=== PATIENT | female | born 1990 | race Caucasian/White ===

== ENCOUNTER 2016-06-30 21:25 | Emergency (ER) | payer OTHER ==
[2016-06-30] MEDS ORDERED: HYDROcodone-APAP 5 MG -325 MG TABLET PO ONE (21:44)
[2016-06-30] MEDS ORDERED: Ondansetron ODT Tab 4 MG TAB PO ONE (21:44)
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
[2016-06-30 22:09] VITALS: RESP 16; TEMP 97.6
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
[2016-06-30] MEDS ORDERED: HYDROcodone-APAP 5 MG -325 MG TABLET PO SCH (23:15)
== END 2016-06-30 23:23 | disposition home or self-care (01) ==
LOC: ER 21:25
DX: S01.81XA Laceration without foreign body of other part of head, initial encounter (principal); R51 Headache; M54.2 Cervicalgia; M25.512 Pain in left shoulder; V86.59XA Driver of other special all-terrain or other off-road motor vehicle injured in nontraffic accident, initial encounter
CPT/HCPCS: 70450; 72125; 73030; 99283

== ENCOUNTER 2016-09-11 20:32 | Emergency (ER) | payer OTHER ==
[2016-09-11 21:52] VITALS: RESP 16; TEMP 97
--- NOTE | 2016-09-12 03:30 | PDOC ---
Female Problem HPI - General Chief Complaint: Vag Complaint/Bleed, <20WK IUP Stated Complaint: POSSIBLE MISCARRIAGE Date Seen by Provider: 09/11/16 Time Seen by Provider: 20:45 Source: POSITIVE: Patient Exam Limitations: POSITIVE: No limitations Nurse's Notes Reviewed & Considered: Yes - History of Present Illness Initial Comments: The patient is a 26-year-old female. Patient states that she took a home test on 07 september and found it to be positive. She thinks her last menstrual period was around July 06. She states she has an appointment with her costing manager Friday. She states she began having some vaginal spotting this morning which became heavier this afternoon. Patient has been 3 times and has had 3 live births, including a set of twins, and she's had one miscarriage. She states she has had some lower pelvic cramping. No real pain. She states she's not passed any tissue. Body Location Affected: REPORTS: Abdomen, Genitalia Timing: REPORTS: Abrupt Duration: <24 hours Severity: Mild Quality: REPORTS: Cramping (Some lower abdominal cramping) Context: DENIES: Frequent Bathing, Poor Hygiene, Frequent [place], Known STD Exposure, Unknown STD Exposure, Possible STD Exposure, Multiple Partners, Known , Recent Vaginal Delivery, Recent Delivery, Recent Miscarriage, Recent Trauma, Recent Surgery, Other Location of Pain: REPORTS: Pelvic Cramping Vaginal Bleeding: REPORTS: Abnormal Bleeding, Spotting Last Known Menstrual Period: 07/06/16 : 4 Para: 3 Abortions (Spontaneous/Intentional): 1 : REPORTS: Positive Test at Home Sexual History: REPORTS: Active Urinary Symptoms: DENIES: Blood in Urine, Frequent Urination, Discomfort w/ Urination, Burning w/ Urination, Urinary Urgency, Painful Urination, Other Discharge: DENIES: Vaginal Discharge, Vag Fluid Leak- , Breast Discharge, Other Similar Symptoms Previously: Yes (with previous miscarriage) Recent Care Received: REPORTS: Denies Any Prior Injuries Related to Current Complaint?: No - Patient Home Medications Home Medications: Home Medications Albuterol Neb Soln 0.083% 2.5 mg IH Q4H PRN #25 ml 09/11/16 Vits W-Ca,Fe,FA(<1Mg) [] 1 tab PO DAILY 09/11/16 - Patient Allergies Allergies/Adverse Reactions: Allergies Allergy/AdvReac Type Severity Reaction Status Date / Time codeine Allergy Severe ANAPHYLAXIS Verified 09/11/16 20:45 &/OR SEIZURE Penicillins Allergy Severe ANAPHYLAXIS Verified 09/11/16 20:45 &/OR SEIZURES latex Allergy Intermediate Rash Verified 09/11/16 20:45 Past Medical History - heen HEENT History: Recurrent Ear Infections, Inner Ear Disorders, Other (please comment) Additional HEENT History: MULTIPLE BILAT EAR SURGERIES IN ADDITION TO TYMPANOPLASTY (L), AND R MASTOIDECTOMY WITH FULL BONE AND SKIN GRAFTING Cardiovascular History: Denies History Respiratory History: Denies History Gastrointestinal History: Other (please comment) Additional Gastrointestinal History: Pt reports hx of ulcers Genitourinary History: Denies History Endocrine History: Other (please comment) Additional Endocrine History: hypoglycemic Musculoskeletal History: Denies History Prosthesis or Implant: No Neurological History: Denies History Blood Disorders: Anemia Psychiatric History: Denies History History of Sexually Transmitted Diseases: No Female Reproductive History: Denies History Obstetrical History: Delivery Cancer History: Denies History In Past Year Been Physically Harmed or Verbally Threatened: No History of MDRO: No History of Other Communicable Diseases: No Tobacco Use: Former Smoker Alcohol Use: None Substance Use Type: None Previous Surgical History: Yes Type / Date of Surgery: EARS, T&A, C SECTION X 3 Anesthesia Reactions: No Significant Family History: No pertinent family hx Past Medical History Reviewed: Reviewed - No Changes ROS - Limitations ROS Limitations: No Limitations Constitution: REPORTS: Denies Symptoms Cardiovascular: REPORTS: Denies Cardiac Symptoms Respiratory: REPORTS: Denies Resp Symptoms Neurological: REPORTS: Denies Neuro Symptoms Gastrointestinal: REPORTS: Denies GI Symptoms Endocrine: REPORTS: Denies Symptoms Musculoskeletal: REPORTS: Denies MS Symptoms Genitourinary: REPORTS: Other (Positive home test; vaginal bleeding/ spotting) Eyes: REPORTS: Denies Symptoms ENT: REPORTS: Denies Symptoms Skin: REPORTS: Denies Skin Symptoms Lympathic: REPORTS: Denies Lympathic Symptoms Immunologic: POSITIVE: Denies Symptoms Psychiatric: POSITIVE: Denies Psych Symptoms Female Genitourinary Exam - General Appearance General Appearance: POSITIVE: Alert, Cooperative, No Acute Distress, No Evidence of Trauma - HEENT HEENT: POSITIVE: EOMI - Neck Neck: POSITIVE: Normal Inspection, No Apparent Injury - Respiratory Respiratory: POSITIVE: No Respiratory Distress, Breath Sounds Normal, Chest Non- Tender - Cardiovascular Cardiovascular: POSITIVE: Regular Rate and Rhythm, Heart Sounds Normal, Equal Pulses, Strong Pulses Peripheral Pulses: Radial (R): 2+, Radial (L): 2+ - Abdomen Abdomen: POSITIVE: Soft, Normal Bowel Sounds, Non-Tender, No Distention, No Organomegaly - Back Back: POSITIVE: Normal Inspection - Genital / Rectal Pelvic Exam: POSITIVE: Cervix (Nontender; os closed), Vagina (No lesions; small amount of blood in vaginal vault), Uterus (Nontender), Adnexa (Nontender), External Exam Normal, Bimanual Exam Normal, Vaginal Bleeding (Scant), Blood In Vaginal Vault (Small amount). NEGATIVE: Speculum Exam Normal (Normal except for small amount of blood in vaginal vault), Vaginal Discharge, Herpes-Like Ulcerations, Clots in vaginal Vault, Cervicitis, Tissue Present in Cervix, Tissue Present in Vagina, Cervical Motion Tender, Cervical Dilation, Adnexal Tenderness, Adnexal Mass, Enlarged Uterus, Tender Uterus, Perineal Hematoma, Enlrgd Consistent w/Dates, Mild, Moderate, Severe - Skin Skin: POSITIVE: Intact, Normal For Race, Warm, Dry, No Rash - Extremities Extremity: Non-Tender: (All Extremities), Normal ROM: (All Extremities), Normal Inspection: (All Extremities) - Neurological / Psychological Neurological: POSITIVE: 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 Adnexa are normal Lab Results Reviewed: Yes Lab Results:: Laboratory Results 09/11/16 Range/Units 21:28 HCG, Quant 84028 mIU/ML Blood Type A POSITIVE - Patient's Progress Pain Medication Addressed: POSITIVE: Not Applicable School/Work Release Addressed: POSITIVE: Not Applicable Re-Examine Time: 23:50 Re-Examine Comment: Asymptomatic on discharge. Ultrasound and laboratory results discussed with patient. Patient's blood type is A positive. Status: POSITIVE: Unchanged, Re-Examined Rhogam Given: No (blood type is A positive) - Consult Counseled: POSITIVE: Patient, RE: Lab Results, RE: Radiology Results, RE: DX, RE : Need for F/U Patient Care Time - Estimated PCT Patient Care Time (In Minutes): 60 Vital Signs - Recent Vital Signs Vital Signs: Vital Signs (Last 8 hours) Temp Pulse Resp BP Pulse Ox 09/11/16 20:36 97.0 F 63 16 117/66 97 - VS Reviewed Vital Signs Reviewed: Yes Discharge Clinical Impression: Intrauterine , Threatened Discharge Disposition: Discharged to Home Condition: Stable Prescriptions / Orders: Albuterol Neb Soln 0.083% 2.5 mg IH Q4H PRN #25 ml PRN Reason: Wheezing Patient Instructions Given at Discharge: Threatened Miscarriage (ED), (ED) Additional Instructions: Your ultrasound shows that you have a twin . Everything looks normal on the ultrasound. By definition, since you are having some vaginal spotting in the first third of , you have what is known as a threatened miscarriage. This means that you are at somewhat more increased risk of miscarrying then if you had no vaginal bleeding. Please follow-up with your costing manager in about 2 days so that he your she can repeat the quantitative hCG test, which will give us some idea of how healthy the is. Your blood type is A+. Return here anytime if you develop abdominal pain, heavy bleeding, or if you pass any tissue. Otherwise follow up with your costing manager Friday. Follow Up With: EARLINE WEBSTER [Primary Care Provider] - (Instructions as above. Follow-up with your costing manager Friday. Return here as necessary as indicated above.)
--- NOTE | 2016-09-12 10:30 | DI ---
US OB TRANSVAGINAL, US OB AD'L GEST LESS THAN14 WK,09/12/2016 12:12 AM: Clinical History: Vaginal bleeding in early . Previous Exam: None at this facility. Findings: Transabdominal and endovaginal grayscale and color Doppler sonographic images are obtained through th e pelvis demonstrating twin gestations in 2 separate gestational sacs. Fetus a measured crown-rump le ngth of 5 mm corresponding with an estimated gestational age of 6 weeks 2 days. Detected Doppler hear t tones measured 104 beats per minute. Fetus B. measured crown-rump length of 4 mm corresponding with an estimated gestational age of 6 week s one day with detected Doppler heart tones of 96 beats per minute. The right ovary measured 3.3 x 2.0 x 2.7 cm with a normal sonographic appearance. The left ovary logan ured 3.3 x 1.8 x 2.7 cm also with a normal sonographic appearance. Impression: Early twin gestation with estimated gestational age of 6 weeks 2 days. This is consistent with a dichorionic/diamniotic twin gestation.
--- NOTE | 2016-09-12 14:32 | DI ---
TECHNIQUE: transabdominal and transvaginal ultrasound of the pelvis was performed. HISTORY: with vaginal bleeding. COMPARISON: none. FINDINGS: There is a twin with a thick intervening membrane. This is most consistent with a dichorion ic diamniotic . Fetus A: fetus A measures 6 weeks 2 days by ultrasound. The last menstrual period predicts 9 weeks 4 days. The heart rate measures 104 bpm. Fetus B: fetus B measures s6ix weeks 1 day. The last menstrual period predicts 9 weeks 4 days. The fe jimmie heart rate measures 96 bpm. The adnexa are within normal limits. The right ovary measures 3.3 x 2.0 x 2.7 cm. The left ovary logan ures 3.3 x 1.8 x 2.7 cm. IMPRESSION: 1. Twin likely representing a dichorionic diamniotic . 2. Fetus A measures 6 weeks 2 days and fetus B measures 6 weeks 1 day. This is discordant from the re ported last menstrual period which predicts 9 weeks 4 days.
== END 2016-09-12 00:33 | disposition home or self-care (01) ==
LOC: ER 20:32
DX: O20.0 Threatened abortion (principal); Z3A.01 Less than 8 weeks gestation of pregnancy
CPT/HCPCS: 76801; 76802; 76817; 84702; 86900; 86901; 99283

== ENCOUNTER → 2016-09-13 | Outpatient (CLI) | payer OTHER | LOC: LAB 18:04 | PROVIDERS: ATTEND Family Medicine | DX: O20.0 Threatened abortion (principal) | CPT/HCPCS: 36415; 84702 ==

== ENCOUNTER 2016-09-15 22:15 | Emergency (ER) | payer OTHER ==
[2016-09-15] MEDS ORDERED: ONDANSETRON 4 MG/2 ML VIAL IVP ONE (22:30)
[2016-09-15] MEDS ORDERED: MORPHINE SULFATE 4 MG/1 ML IVP ONE (22:30)
[2016-09-15] MEDS ORDERED: Sodium Chloride 0.9% 1,000 ML PRIMARY IV ONE (22:30)
--- NOTE | 2016-09-15 22:34 | PDOC ---
Female Problem HPI - General Chief Complaint: Vag Complaint/Bleed, <20WK IUP Stated Complaint: VAGINAL BLEEDING STARTED TODAY, 7 WEEKS GESTATION Date Seen by Provider: 09/15/16 Time Seen by Provider: 22:29 Source: POSITIVE: Patient Exam Limitations: POSITIVE: No limitations Nurse's Notes Reviewed & Considered: Yes - History of Present Illness Body Location Affected: REPORTS: Abdomen Timing: REPORTS: Abrupt Duration: 1-3 hours Severity: Moderate Quality: REPORTS: Cramping, "Pain" Context: REPORTS: Known (Twin gestation) Location of Pain: REPORTS: Left, Pelvic Pain, Pelvic Cramping, Pelvic Pressure, Low Back Pain Vaginal Bleeding: REPORTS: Abnormal Bleeding, Similar to Periods : 4 Para: 3 Abortions (Spontaneous/Intentional): 1 : REPORTS: By Dates, Care Sexual History: REPORTS: Active Discharge: REPORTS: Vaginal Discharge (Bloody discharge) Similar Symptoms Previously: No Recent Care Received: REPORTS: Recently Seen Any Prior Injuries Related to Current Complaint?: No - Patient Home Medications Home Medications: Home Medications Albuterol Neb Soln 0.083% 2.5 mg IH Q4H PRN #25 ml 09/11/16 Vits W-Ca,Fe,FA(<1Mg) [] 1 tab PO DAILY 09/11/16 Progesterone,Micronized [Progesterone] 200 mg PO QD #30 cap 09/12/16 - Patient Allergies Allergies/Adverse Reactions: Allergies Allergy/AdvReac Type Severity Reaction Status Date / Time codeine Allergy Severe ANAPHYLAXIS Verified 09/15/16 22:30 &/OR SEIZURE Penicillins Allergy Severe ANAPHYLAXIS Verified 09/15/16 22:30 &/OR SEIZURES latex Allergy Intermediate Rash Verified 09/15/16 22:30 Past Medical History - heen HEENT History: Recurrent Ear Infections, Inner Ear Disorders, Other (please comment) Additional HEENT History: MULTIPLE BILAT EAR SURGERIES IN ADDITION TO TYMPANOPLASTY (L), AND R MASTOIDECTOMY WITH FULL BONE AND SKIN GRAFTING Cardiovascular History: Denies History Respiratory History: Denies History Gastrointestinal History: Other (please comment) Additional Gastrointestinal History: Pt reports hx of ulcers Genitourinary History: Denies History Endocrine History: Other (please comment) Additional Endocrine History: hypoglycemic Musculoskeletal History: Denies History Prosthesis or Implant: No Neurological History: Denies History Blood Disorders: Anemia Psychiatric History: Denies History History of Sexually Transmitted Diseases: No Cancer History: Denies History History of MDRO: No History of Other Communicable Diseases: No Alcohol Use: None Substance Use Type: None Previous Surgical History: Yes Type / Date of Surgery: EARS, T&A, C SECTION X 3 Anesthesia Reactions: No Significant Family History: No pertinent family hx ROS - Limitations ROS Limitations: No Limitations Constitution: REPORTS: Denies Symptoms Cardiovascular: REPORTS: Denies Cardiac Symptoms Respiratory: REPORTS: Denies Resp Symptoms Neurological: REPORTS: Denies Neuro Symptoms Gastrointestinal: REPORTS: Abdominal Pain Endocrine: REPORTS: Denies Symptoms Musculoskeletal: REPORTS: Denies MS Symptoms Genitourinary: REPORTS: Discharge (Vaginal bleeding) Eyes: REPORTS: Denies Symptoms ENT: REPORTS: Denies Symptoms Skin: REPORTS: Denies Skin Symptoms Lympathic: REPORTS: Denies Lympathic Symptoms Immunologic: POSITIVE: Denies Symptoms Psychiatric: POSITIVE: Denies Psych Symptoms Female Genitourinary Exam - General Appearance General Appearance: POSITIVE: Alert, Cooperative, No Evidence of Trauma, Moderate Distress - HEENT HEENT: POSITIVE: Head Inspection Nml, Eyes Inspection Nml, Ears Inspection Nml, Nose Inspection Nml, PERRL, EOMI - Neck Neck: POSITIVE: Normal Inspection, No Apparent Injury - Respiratory Respiratory: POSITIVE: No Respiratory Distress, Breath Sounds Normal, Chest Non- Tender - Cardiovascular Cardiovascular: POSITIVE: Regular Rate and Rhythm, Heart Sounds Normal - Abdomen Abdomen: POSITIVE: Soft, Normal Bowel Sounds, Tenderness (Left lower quadrant greater than right lower quadrant) - Back Back: POSITIVE: Normal Inspection - Genital / Rectal Pelvic Exam: POSITIVE: Cervix (Unable to visualize the os.), Vagina (Blood in the vaginal vault), Vaginal Bleeding, Blood In Vaginal Vault - Skin Skin: POSITIVE: Intact, Normal For Race, Warm, Dry, No Rash - Extremities Extremity: Non-Tender: (All Extremities), Normal ROM: (All Extremities), Normal Inspection: (All Extremities), Pelvis Stable: (All Extremities) - Neurological / Psychological Neurological: POSITIVE: Affect Apporpriate, Oriented X3 Female Genitourinary Progress - Results Reviewed by me Xrays/CTs/US Reviewed by me: Yes Discussed with Radiologist: Yes Lab Results Reviewed: Yes Lab Results:: Laboratory Results 09/15/16 09/15/16 Range/Units 22:39 23:53 WBC 7.89 (4.8-10.8) 10^3/uL RBC 3.45 L (4.20-5.40) 10^6/uL Hgb 11.5 L (12.0-16.0) g/dL Hct 31.9 L (37.0-47.0) % MCV 92.5 (81-99) FL MCH 33.3 H (27-31) PG MCHC 36.1 (33-37) g/dL RDW Std Deviation 42.7 (39-50) fL RDW Coeff of Yeyo 13.1 (11.5-14.5) % Plt Count 173 (140-350) 10*3/uL MPV 11.4 (7.4-12.2) FL Immature Gran % (Auto) 0.3 (0-5) % Neut % (Auto) 64.8 (50-80) % Lymph % (Auto) 23.2 (10-50) % Mcdowell % (Auto) 8.7 (5-15) % Eos % (Auto) 2.5 (0-8) % Baso % (Auto) 0.5 (0-1) % Immature Gran # (Auto) 0.02 10*3/UL Neut # (Auto) 5.11 10*3/UL Lymph # (Auto) 1.83 10*3/uL [place] # (Auto) 0.69 (0.3-0.8) 10*3/UL Eos # (Auto) 0.20 10*3/UL Baso # (Auto) 0.04 10*3/UL WBC Morphology Comment Normal morphology (NORM) Plt Morphology Comment Normal morphology (NORM) RBC Morph Comment Normal morphology (NORM) Sodium 137 (135-145) meq/L Potassium 3.6 L (3.8-5.2) meq/L Chloride 106 (98-112) meq/L Carbon Dioxide 24 (23-33) meq/L Anion Gap 7 (5-20) BUN 14 (7-22) mg/dL Creatinine 0.7 (0.50-1.20) mg/dL Estimated GFR > 60 (>60 ml/min/1.73m(2)) BUN/Creatinine Ratio 20.00 (6-20) Glucose 88 (78-110) mg/dL Calculated Osmolality 283.0 (267-292) mOsm/kg Calcium 8.9 (8.7-10.7) mg/dL Magnesium 1.8 (1.6-2.4) mg/dL Total Bilirubin 0.6 (0.3-1.2) mg/dL AST 20 (8-39) IU/L ALT 28 (9-52) IU/L Alkaline Phosphatase 46 (38-126) IU/L Total Protein 5.8 L (6.1-8.0) g/dL Albumin 3.6 (3.5-4.8) g/dL Globulin 2.2 L (2.50-4.10) g/dL Albumin/Globulin Ratio 1.60 (1.3-2.0) mg/g HCG, Quant 91655 mIU/ML Ur Collection Type Clean catch urine Urine Color Yellow Urine Clarity Clear (CLEAR) Urine pH 6.0 (5.0-8.5) Ur Specific [place] 1.020 (1.005-1.030) Urine Protein Negative (NEG) mg/dl Urine Glucose (UA) Negative (NEG) mg/dL Urine Ketones Negative (NEG) Urine Occult Blood Negative (NEG) Urine Nitrate Negative (NEG) Urine Bilirubin Negative (NEG) Urine Urobilinogen 0.2 (0.2) EU/dL Ur Leukocyte Esterase Negative (NEG) Ur Culture Indicated? Culture not set - Patient's Progress Pain Medication Addressed: POSITIVE: Yes Re-Examine Time: 01:15 Status: POSITIVE: Improved MDM / ED Course: Patient was evaluated, an IV started, blood drawn and sent to the lab for studies, radiographic examinations were obtained. Findings: CBC shows a normal white count hemoglobin is 11.5. Comprehensive metabolic panel is unremarkable. Urinalysis is negative. Ultrasound shows to live intrauterine pregnancies measuring 6 weeks and 5 days. Plan a his heartbeat or 125 beats a minute twin B has a heartbeat of 117 beats a minute. Assessment: Vaginal bleeding and plan gestation. Plan: Follow-up with Dr. Zayas at 1:00 16 of september. Return to the emergency room if increased bleeding, increased pain, or fevers. Rhogam Given: No (patient is a positive per review of chart) - Consult Consult (If Yes, Name of Consulting MD & Time Called): Yes (0115 Dr. Zayas) Consulting MD will see pt:: POSITIVE: In Office Counseled: POSITIVE: Patient, RE: Lab Results, RE: Radiology Results, RE: DX, RE : Need for F/U Patient Care Time - Estimated PCT Patient Care Time (In Minutes): 45 Vital Signs - Recent Vital Signs Vital Signs: Vital Signs (Last 8 hours) Temp Pulse Resp BP Pulse Ox 09/15/16 22:20 97.6 F 60 18 104/52 100 - VS Reviewed Vital Signs Reviewed: Yes Discharge Clinical Impression: Hemorrhage in early Discharge Disposition: Discharged to Home Condition: Stable Patient Instructions Given at Discharge: First Trimester Vaginal Bleed (ED)
[2016-09-15 22:41] LABS: HEMATOCRIT 31.9 % (37.0-47.0); HEMOGLOBIN 11.5 g/dL (12.0-16.0); MEAN CORPUSCULAR HEMOGLOBIN 33.3 PG (27-31); MEAN CORPUSCULAR HGB CONC 36.1 g/dL (33-37); MEAN CORPUSCULAR VOLUME 92.5 FL (81-99); RED BLOOD COUNT 3.45 10^6/uL (4.20-5.40)
[2016-09-15 22:42] LABS: BASOPHILS # (AUTO) 0.04 10*3/UL; BASOPHILS % (AUTO) 0.5 % (0-1); EOSINOPHILS % (AUTO) 2.5 % (0-8); LYMPHOCYTES # (AUTO) 1.83 10*3/uL; MEAN PLATELET VOLUME 11.4 FL (7.4-12.2); MONOCYTES # (AUTO) 0.69 10*3/UL (0.3-0.8); MONOCYTES % (AUTO) 8.7 % (5-15); NEUTROPHILS # (AUTO) 5.11 10*3/UL; NEUTROPHILS % (AUTO) 64.8 % (50-80); PLATELET MORPHOLOGY COMMENT NORMAL MORPHOLOGY (NORM); RBC MORPHOLOGY COMMENT NORMAL MORPHOLOGY (NORM); WBC MORPHOLOGY COMMENT NORMAL MORPHOLOGY (NORM)
[2016-09-15] MEDS ORDERED: MORPHINE SULFATE 2 MG/1 ML ONE (22:46)
[2016-09-15 22:52] LABS: BLOOD UREA NITROGEN 14 mg/dL (7-22); CALCIUM 8.9 mg/dL (8.7-10.7); EST GLOMERULAR FILTRATION > 60 (>60 ml/min/1.73m(2)); MAGNESIUM 1.8 mg/dL (1.6-2.4); SERUM ALBUMIN 3.6 g/dL (3.5-4.8)
[2016-09-15 23:23] VITALS: RESP 18; TEMP 97.6
[2016-09-15 23:55] LABS: BILIRUBIN,URINE NEGATIVE (NEG); CLARITY,URINE CLEAR (CLEAR); COLOR,URINE YELLOW; GLUCOSE, URINE (UA) NEGATIVE (NEG); NITRATE,URINE NEGATIVE (NEG); OCCULT BLOOD,URINE NEGATIVE (NEG); PROTEIN,URINE NEGATIVE (NEG); URINE SAMPLE TYPE CLEAN CATCH URINE; UROBILINOGEN,URINE 0.2 EU/dL (0.2)
--- NOTE | 2016-09-16 08:26 | DI ---
HISTORY: Vaginal bleeding with twin . COMPARISON: 09/12/16. TECHNIQUE: ultrasound of the pelvis was performed. FINDINGS: There is a twin with a thick intervening membrane. This is most consistent with a dichorionic diamniotic . FETUS A: Fetus A measures 6 weeks and 5 days by ultrasound. The last menstrual period predicts 10 wee ks and 1 days. The heart rate measures 124 beats per minute. FETUS B: Fetus B measures 6 weeks and 5 day. The last menstrual period predicts 10 weeks and 1 days. The heart rate measures 117 beats per minute. The adnexa are within normal limits. The right ovary measures 2.9 x 2.1 x 2.9 cm. The left ovary logan ures 2.9 x 1.9 x 2.9 cm. IMPRESSION: 1. Twin likely representing a dichorionic diamniotic . 2. Fetus A measures 6 weeks and 5 days and fetus B measures 6 weeks and 5 day. This is discordant fro m the reported last menstrual period which predicts 10 weeks and 1 days. Otherwise normal embryonic u ltrasound. NOTE: The interpreting Radiologist was not present at the time of ultrasound interrogation.
== END 2016-09-16 01:28 | disposition home or self-care (01) ==
LOC: ER 22:15
DX: O20.9 Hemorrhage in early pregnancy, unspecified (principal); Z3A.01 Less than 8 weeks gestation of pregnancy
CPT/HCPCS: 76801; 80053; 81003; 83735; 84702; 85025; 96361; 96374; 96375; 99283; J2270; J2405; J7030

== ENCOUNTER → 2016-09-16 | Outpatient (CLI) | payer OTHER ==
[2016-09-16 15:57] LABS: BASOPHILS # (AUTO) 0.02 10*3/UL; BASOPHILS % (AUTO) 0.3 % (0-1); EOSINOPHILS # (AUTO) 0.16 10*3/UL; EOSINOPHILS % (AUTO) 2.6 % (0-8); HEMATOCRIT 33.1 % (37.0-47.0); HEMOGLOBIN 11.7 g/dL (12.0-16.0); LYMPHOCYTES # (AUTO) 0.99 10*3/uL; MEAN CORPUSCULAR HEMOGLOBIN 33.2 PG (27-31); MEAN CORPUSCULAR HGB CONC 35.3 g/dL (33-37); MEAN PLATELET VOLUME 11.8 FL (7.4-12.2); MONOCYTES % (AUTO) 9.6 % (5-15); NEUTROPHILS # (AUTO) 4.45 10*3/UL; NEUTROPHILS % (AUTO) 71.4 % (50-80); RED BLOOD COUNT 3.52 10^6/uL (4.20-5.40)
[2016-09-16 16:06] LABS: PLATELET MORPHOLOGY COMMENT NORMAL MORPHOLOGY (NORM); RBC MORPHOLOGY COMMENT NORMAL MORPHOLOGY (NORM); WBC MORPHOLOGY COMMENT NORMAL MORPHOLOGY (NORM)
[2016-09-16 16:30] LABS: HIV ANTIBODY NEGATIVE (N); HIV-1 P24 ANTIGEN NEGATIVE (N)
[2016-09-18 16:16] LABS: HEP B SURFACE AG Negative (Negative)
== END ==
LOC: MOB LAB 13:25
PROVIDERS: ATTEND Family Medicine
DX: Z36 Encounter for antenatal screening of mother (principal)
CPT/HCPCS: 36415; 80081; 86900; 86901; 87088

== ENCOUNTER → 2016-09-19 | Outpatient (CLI) | payer OTHER ==
--- NOTE | 2016-09-19 14:09 | DI ---
OBSTETRICAL ULTRASOUND, 09/19/2016 12:54 PM: Clinical History: Threatened . . Previous Exam: 09/15/2016. LMP: 07/06/2016. There none live IUP's currently in unstable position. Amnionic fluid content is normal. The placenta is not visible. Twin A: heart rate is 132 beats/minute and regular. The yolk sac is visualized. CRL measurement is 9 mm. This measurement corresponds to an EGA value of 7 weeks 0 days. The US EDC is 05/08/2017. ED C by LMP is 04/12/2017. Twin B: heart rate is 130 beats/minute and regular. The yolk sac is visualized. CRL measurement is 8 mm. This measurement corresponds to an EGA value of 6 weeks 6 days. The US EDC is 05/09/2017. ED C by LMP is 04/12/2017. There is no evidence of a subchorionic fluid collection. There is a corpus luteum cyst of the right o vary. The left ovary is normal. Readin. Live twin intrauterine pregnancies. Twin A has an ultrasound EGA of 7 weeks zero days with an ult rasound EDC of 05/08/2017. Twin B has an ultrasound EGA of 6 weeks 6 days with an ultrasound EDC of 03/2018. Based on the patient's LMP of 07/06/2016, the EDC would be 04/12/2017. The previous examinati on performed on 09/15/2016 gave an EDC of 05/06/2017. 2. There is no evidence of a subchorionic hemorrhage. There is a corpus luteum cyst of the right ova ry in the left ovary is normal.
== END ==
LOC: US 12:49
PROVIDERS: ATTEND Family Medicine
DX: O20.0 Threatened abortion (principal)
CPT/HCPCS: 76801; 76802; 76817

== ENCOUNTER 2016-09-26 18:34 | Outpatient (CLI) | payer OTHER ==
[2016-09-26] MEDS ORDERED: NORMAL SALINE 10 ML SYRINGE FLUSH IVP PRN (18:58)
[2016-09-26] MEDS ORDERED: HYDROcodone-APAP 5 MG -325 MG TABLET PO ONE ×2 (19:02→22:37)
--- NOTE | 2016-09-26 20:20 | DI ---
CLINICAL HISTORY: Twin gestation with abdominal pain and back pain with cramping. PREVIOUS EXAM: None available. FINDINGS/TECHNIQUE: Multiple transvaginal grayscale and color Doppler sonographic images are obtained through the pelvis. The cervix appears to be long and closed measuring 3.7 cm in length. Twin A. demonstrates no detectable Doppler heart tones. This measures a crown-rump length of 12 mm, a nd correspond with an estimated gestational age of 7 weeks 3 days. Fetus B. demonstrates detected Doppler heart tones of 170 beats per minute and measures 12 mm in hoh n-rump length correspond with an estimated gestational age of 7 weeks 3 days. IMPRESSION: 1. Twin gestation with no detectable Doppler heart tones within fetus A. 2. Fetus B. demonstrates normal Doppler heart tones (170 beats per minute). NOTE: The interpreting Radiologist was not present at the time of ultrasound interrogation.
[2016-09-26 20:29] VITALS: RESP 20
[2016-09-26 21:39] LABS: BASOPHILS # (AUTO) 0.04 10*3/UL; BASOPHILS % (AUTO) 0.6 % (0-1); EOSINOPHILS # (AUTO) 0.18 10*3/UL; EOSINOPHILS % (AUTO) 2.5 % (0-8); HEMOGLOBIN 10.3 g/dL (12.0-16.0); LYMPHOCYTES # (AUTO) 2.08 10*3/uL; MEAN CORPUSCULAR HEMOGLOBIN 33.1 PG (27-31); MEAN CORPUSCULAR HGB CONC 35.5 g/dL (33-37); MEAN CORPUSCULAR VOLUME 93.2 FL (81-99); MEAN PLATELET VOLUME 10.3 FL (7.4-12.2); MONOCYTES # (AUTO) 0.51 10*3/UL (0.3-0.8); MONOCYTES % (AUTO) 7.2 % (5-15); NEUTROPHILS # (AUTO) 4.29 10*3/UL; NEUTROPHILS % (AUTO) 60.2 % (50-80); PLATELET MORPHOLOGY COMMENT NORMAL MORPHOLOGY (NORM); RBC MORPHOLOGY COMMENT NORMAL MORPHOLOGY (NORM); RED BLOOD COUNT 3.11 10^6/uL (4.20-5.40); WBC MORPHOLOGY COMMENT NORMAL MORPHOLOGY (NORM)
[2016-09-26 21:49] LABS: BLOOD UREA NITROGEN 15 mg/dL (7-22); CALCIUM 8.6 mg/dL (8.7-10.7); EST GLOMERULAR FILTRATION > 60 (>60 ml/min/1.73m(2)); SERUM ALBUMIN 3.3 g/dL (3.5-4.8)
[2016-09-26] MEDS ORDERED: CLOTRIMAZOLE 21 GM 3-DAY VAG CREAM VAGINAL ONE (21:54)
[2016-09-26] MEDS ORDERED: HYDROcodone-APAP 5 MG -325 MG TABLET PO PRN (22:55)
[2016-09-26 23:07] VITALS: TEMP 98.7
--- NOTE | 2016-10-12 13:28 | PDOC(PROG) ---
Intake - - Reason for Visit/Chief Complaint: Cramping Admitted From: Home - Estimated Due Date: 05/09/17 Gestational Age in Weeks and Days: 10 Weeks and 1 Days : 4 Living Children: 3 Maternal - Vital Signs Last Taken Vital Signs: Vital Signs - Last Taken Temperature 98.7 F 09/26/16 22:50 Pulse Rate 61 09/26/16 22:50 Respiratory Rate 20 09/26/16 22:50 Blood Pressure 117/46 09/26/16 22:50 Pulse Ox 100 09/26/16 22:50 - Uterine Activity Uterine Contraction Monitor Mode: External Uterine Contraction Pattern: Absent - Vaginal Discharge Vaginal Bleeding Amount: None Vaginal Bleeding Description: Brownish-Red Vaginal Discharge Amount: None Vaginal Itching: No Results - Labs CBC and BMP: 09/26/16 21:35 09/26/16 21:35 - Bedside Testing Bedside Urine Ketone: Negative Bedside Urine Leukocytes Esterase: Negative Bedside Urine Nitrite: Negative Bedside Urine Occult Blood: Negative Bedside Urine Protein: Negative Bedside Specific [place]: 1.010 Assessment and Plan - Patient Problems (1) Abdominal cramping affecting Status: Acute - Assessment / Plan Additional Assessment/Plan Details: -u/s today continues to document viability of baby B. -discussed trying tylenol and heat packs for cramping. -advised low-fat diet as this has some similarities with biliary colic. -u/s next week to check viability. -f/u in the office with me next week. Female Problem HPI - General Date Seen by Provider: 09/26/16 Time Seen by Provider: 19:30 Source: POSITIVE: Patient Exam Limitations: POSITIVE: No limitations Nurse's Notes Reviewed & Considered: Yes - History of Present Illness Initial Comments: Anita is a 26 yo at 8 weeks gestation who presents to the emergency room with increasingly painful cramping. I saw the pt on labor and delivery as the emergency room was occupied by 2 trauma patients. She has a known twin gestation, with the recently noted demise of baby A. Baby B has remained viable. She has had bleeding off and on, but as of late, this has decreased to just spotting. Her cramping is located in the periumbilical area, as well as the right and left upper quadrants. She states that she has had no diarrhea or bowel changes. However, she did start to have increased crampy pain after she ate at both [employer] and [employer]. She has not had any imaging or previous imaging of her gallbladder. Vaginal Bleeding: REPORTS: Spotting Urinary Symptoms: DENIES: Blood in Urine, Frequent Urination, Discomfort w/ Urination, Burning w/ Urination, Urinary Urgency, Painful Urination, Other Discharge: DENIES: Vaginal Discharge, Vag Fluid Leak- , Breast Discharge, Other Recent Care Received: REPORTS: Recently Seen, Treated by MD - Patient Home Medications Home Medications: Home Medications Albuterol Neb Soln 0.083% 2.5 mg IH Q4H PRN #25 ml 09/11/16 Docosahexanoic Acid [ Dha] 200 mg PO QD #90 cap 09/16/16 Ferrous Gluconate [Fergon] 324 mg PO BID #60 tab 09/27/16 Sennosides/Docusate Sodium [Dok Plus Tablet] 1 each PO BID #60 tab 09/27/16 Ondansetron [Zofran Odt] 4 - 8 mg PO Q8H #30 tab 10/09/16 Progesterone,Micronized [Progesterone] 200 mg PO QD #30 cap 10/11/16 - Patient Allergies Allergies/Adverse Reactions: Allergies Allergy/AdvReac Type Severity Reaction Status Date / Time codeine Allergy Severe ANAPHYLAXIS Unverified 09/16/16 13:12 \T\/OR SEIZURE Penicillins Allergy Severe ANAPHYLAXIS Unverified 09/16/16 13:12 \T\/OR SEIZURES latex Allergy Intermediate Rash Unverified 09/16/16 13:12
== END 2016-09-26 22:55 | disposition home or self-care (01) ==
LOC: OBOP 18:34
PROVIDERS: ATTEND Family Medicine
DX: O26.891 Other specified pregnancy related conditions, first trimester (principal); O30.001 Twin pregnancy, unspecified number of placenta and unspecified number of amniotic sacs, first trimester; R25.2 Cramp and spasm; M54.5 Low back pain; Z3A.10 10 weeks gestation of pregnancy
CPT/HCPCS: 36415; 76802; 76815; 80053; 81003; 82150; 83690; 85025; 87480; 87491; 87510; 87591; 87660; 99211

== ENCOUNTER → 2016-09-26 | Outpatient (CLI) | payer OTHER ==
--- NOTE | 2016-09-26 11:32 | DI ---
HISTORY: Verify viability. Twin gestation. Bleeding in early . COMPARISON: None available. TECHNIQUE: Multiple transabdominal grayscale and color Doppler sonographic images were obtained thro ugh the pelvis. FINDINGS: There are 2 gestational sacs identified. Fetus A measures a crown-rump length of 13 mm co rresponding with an estimated gestational age of 7 weeks 4 days. There are no detected Doppler heart tones in fetus A. The second gestational sac measures a mean sac diameter of 2.4 cm. [place]-rump length measures 15 mm corresponding with an estimated gestational age of 7 weeks 6 days. IMPRESSION: 1. Twin gestation without Doppler heart tones in twin A. 2. Fetus B is viable, but only measures 7 weeks 6 days. This does not correspond with the estimated gestational age by last menstrual period. NOTE: The interpreting Radiologist was not present at the time of ultrasound interrogation.
== END ==
LOC: US 08:58
PROVIDERS: ATTEND Family Medicine
DX: O26.851 Spotting complicating pregnancy, first trimester (principal); O30.041 Twin pregnancy, dichorionic/diamniotic, first trimester
CPT/HCPCS: 76802; 76815; 76817

== ENCOUNTER → 2016-09-27 | Outpatient (CLI) | payer OTHER ==
--- NOTE | 2016-09-27 11:30 | DI ---
GALLBLADDER AND LIVER ULTRASOUND, 09/27/2016 10:58 AM: Clinical History: Elevated liver function tests. Previous Exam: None at this facility. Technique: Scans are performed through the right upper quadrant in multiple projections. The patient was rolled from side to side and the gallbladder was balloted with the probe to facilitate visualizat ion of small gallstones. The gallbladder is well distended and has a normal wall thickness. There are no gallstones. The commo n bile duct measures 4 mm. The pancreas is visualized from the head to the body and is normal. The vi sualized portions of the liver, right kidney, and IVC are normal. The aorta is normal. Readin. The liver is normal. There is no evidence of biliary obstruction. 2. The gallbladder, right kidney, pancreas, IVC, and aorta are normal.
== END ==
LOC: US 10:54
PROVIDERS: ATTEND Family Medicine
DX: O26.891 Other specified pregnancy related conditions, first trimester (principal); R74.0 Nonspecific elevation of levels of transaminase and lactic acid dehydrogenase [LDH]
CPT/HCPCS: 76705

== ENCOUNTER → 2016-10-02 | Outpatient (CLI) | payer OTHER ==
--- NOTE | 2016-10-02 14:07 | DI ---
US OB , LIMITED,10/02/2016 9:55 AM: Clinical History: Threatened in the first trimester. Previous Exam: September 26, 2016 Findings: Multiple transabdominal grayscale and color Doppler sonographic images are obtained through the pelvi s demonstrating a twin gestation. Evaluation of the right adnexa is limited. There is an empty gestational sac noted representing fetus A. Fetus a demonstrates a crown-rump lengt h of 12 mm corresponding with an estimate gestational age of 7 weeks 3 days. No heart tones are visualized. Gestation B. (to the maternal left) demonstrates a single live intrauterine gestation measuring a [employer] office [employer] wn-rump length of 2.1 cm corresponding with an estimated gestational age of 8 weeks 6 days. Detected Doppler heart tones within the fetus B. measured 181 beats per minute. Impression: 1. Twin gestation with one viable fetus (fetus B. measuring 8 weeks 6 days) and one nonviable fetus ( fetus A measuring 7 weeks 3 days). This is essentially unchanged from the prior exam.
== END ==
LOC: US 09:43
PROVIDERS: ATTEND Family Medicine
DX: O20.0 Threatened abortion (principal)
CPT/HCPCS: 76815

== ENCOUNTER → 2016-10-08 | Outpatient (CLI) | payer OTHER ==
--- NOTE | 2016-10-08 22:25 | DI ---
US OB , LIMITED,10/08/2016 9:50 AM: Clinical History: Threatened first trimester. Previous Exam: October 02, 2016 Findings: Multiple transabdominal grayscale and color Doppler sonographic images are obtained through the pelvi s demonstrating a twin gestation. Fetus a (maternal right) demonstrates a pole the crown-rump length of 12 mm corresponding with an estimated gestational age of 7 weeks 3 days. This is much shorter than the estimated gestational a ge by last menstrual period. There are no detectable Doppler heart tones. The fetus B. (maternal left) demonstrates a crown-rump length of 26 mm corresponding with an estimate d gestational age of 9 weeks 3 days. Detected Doppler heart tones measure 165 beats per minute. Impression: 1. Twin gestation with one viable fetus with estimated gestational age equal to dates. 2. Nonviable fetus which has ceased to growth since the prior exam and there are no detectable Dopple r heart tones.
== END ==
LOC: US 09:47
PROVIDERS: ATTEND Family Medicine
DX: O20.0 Threatened abortion (principal)
CPT/HCPCS: 76815

== ENCOUNTER → 2016-10-21 | Outpatient (CLI) | payer OTHER ==
--- NOTE | 2016-10-21 15:57 | DI ---
US OB TRANSVAGINAL,10/21/2016 1:29 PM: Clinical History: Threatened . Previous Exam: October 02, 2016 Findings: Multiple transvaginal grayscale and color Doppler sonographic images are obtained through the pelvis demonstrating a twin gestation. There has been demise of one of the twins., Which now measures a crown-rump length of 14 mm cor responding with an estimated gestational age of 7 weeks 5 days. Fetus B. measures a crown-rump length of 46 mm corresponding with an estimated gestational age of 11 weeks 3 days. The right ovary measures 2.8 x 1.9 x 2.5 cm and the left ovary measures 2.1 x 2.1 x 2.5 cm with a nor mal appearance. Detected Doppler heart tones measure 167 beats per minute. Impression: 1. demise of fetus A 2. Fetus B measures an estimated gestational age of 11 weeks 3 days. 3. Normal bilateral ovaries.
== END ==
LOC: US 13:24
PROVIDERS: ATTEND Family Medicine
DX: O20.0 Threatened abortion (principal); Z3A.11 11 weeks gestation of pregnancy
CPT/HCPCS: 76817